=== PATIENT | female | born 1940 | race Caucasian/White ===

== ENCOUNTER 2016-05-22 09:13 | Day surgery (SDC) | payer MEDICARE, MEDICAID ==
[2016-06-07] MEDS ORDERED: NORCO 5-325 TA1 EACH PO (09:21)
[2016-06-07] MEDS ORDERED: NORVASC5 MG PO (09:21)
== END 2016-05-22 12:03 | disposition home or self-care (01) ==
DX: K22.70 Barrett's esophagus without dysplasia (principal); K29.50 Unspecified chronic gastritis without bleeding; K20.9 Esophagitis, unspecified; K44.9 Diaphragmatic hernia without obstruction or gangrene; G47.30 Sleep apnea, unspecified; I10 Essential (primary) hypertension; Z79.899 Other long term (current) drug therapy; J40 Bronchitis, not specified as acute or chronic; Z98.890 Other specified postprocedural states; Z88.6 Allergy status to analgesic agent; Z88.8 Allergy status to other drugs, medicaments and biological substances; E78.00 Pure hypercholesterolemia, unspecified

== ENCOUNTER 2016-06-05 08:18 | Observation (INO) | payer MEDICARE, MEDICAID ==
[~2016-06-05] VITALS: Ht 165.1 cm; Wt 75.2 kg
[2016-06-07] MEDS ORDERED: NORCO 5-325 TA1 EACH PO (09:21)
[2016-06-07] MEDS ORDERED: NORVASC5 MG PO (09:21)
--- NOTE | 2016-06-18 07:13 | OR ---
ADMIT: 06/05/2016 RM/LOC: 510 [facility] MR#: [id number] [facility] [address] [place] [id number] [address] [place] [address] Operative/Delivery Room Report SEX: F AGE: 75 : 1940 SURGERY DATE: 06/05/2016 SURGEON: Nicholas Velarde MD PREOPERATIVE DIAGNOSIS: Refractory gastroesophageal reflux disease with large hiatal hernia. POSTOPERATIVE DIAGNOSIS: Refractory gastroesophageal reflux disease with large hiatal hernia. PROCEDURE: Laparoscopic hiatal hernia repair with Toupet fundoplication. DRUPAL ARCHITECT: MICHELLE Venegas whose assistance was necessary for laparoscopic visualization and tissue retraction. ANESTHESIA: General. ESTIMATED BLOOD LOSS: Minimal. DESCRIPTION: The patient was taken to the operating room and placed supine on the operating room table. General anesthesia was established. The abdomen was prepped and draped in the standard surgical fashion. A 1 cm supraumbilical incision was made in the skin. The fascia was grasped with Brandt clamp and a Veress needle was advanced into the peritoneal cavity. Carbon dioxide was used to insufflate the abdomen to 15 mmHg pressure. The Veress needle was withdrawn, and a 10 mm blunt-tipped trocar was placed. Laparoscope was advanced and showed intraperitoneal position with no damage to underlying structures. Next, 5 mm right upper quadrant, left upper quadrant, left lateral ports were placed under visualization. The Khurram liver retractor was advanced from a 5 mm subxiphoid incision and used to retract the left lobe of the liver. The hernia sac was reduced from the mediastinal attachments. The right crura was freed from this hernia sac with Harmonic Scalpel. The dissection proceeded posteriorly to the junction with the left crura. The space in the retroesophageal area was created bluntly and visualization of the posterior gastric fundus was easily performed. This was quite floppy and allowed approximation to the distal esophagus for a 270 degree wrap without tension. The dissection anteriorly proceeded to the left crura. The angle of his was freed from its phrenic attachments with the phrenoesophageal ligament division. Anterior and posterior vagus nerves were identified and preserved. Next, the crural repair was performed in a [id number] fashion with the EndoStitch device and 0 Surgidac suture. This provided adequate closure of the crura with no tension. Four separate sutures were used for approximation. Next, a partial 270 degree ADMIT: 06/05/2016 RM/LOC: 510 [facility] MR#: [id number] [id number] [address] [address] Operative/Delivery Room Report SEX: F AGE: 75 : 1940 fundoplication was performed. A posterior limb was secured to the GE junction with 2 separate EndoStitch 0 Surgidac sutures. In a similar fashion, an anterior limb was secured for 270 degree nonobstructive wrap with the EndoStitch and 0 Surgidac suture. This again was done with no tension or torsion. The wrap and repair were intact upon completion. The ports and Khurram liver retractor were withdrawn. The fascial margin at the 11 mm port site was approximated with 0 Vicryl suture and the suture passer. The abdomen was allowed to deflate. Skin edges were approximated with 4-0 Monocryl in a subcuticular fashion and Dermabond. Local anesthetic was injected at the incisions. Sponge, needle, and instrument counts were correct at the end of the case. The patient tolerated the procedure well and transferred to the recovery area in stable condition. Nicholas Velarde MD/ bruno JOB #: [id number] CC: Nicholas Velarde MD, Attending Physician Chandu De Dios MD, Family Physician
== END 2016-06-06 12:52 | disposition home or self-care (01) ==
LOC: SSS 08:18 → 5MS 08:19 → SSS 08:40 → 5MS 06-06 12:52
PROVIDERS: ADMIT Surgery
PROC: 0BQR4ZZ (ICD-10-PCS; principal; 2016-06-05)
DX: K44.9 Diaphragmatic hernia without obstruction or gangrene (principal); K21.9 Gastro-esophageal reflux disease without esophagitis; G47.30 Sleep apnea, unspecified; I10 Essential (primary) hypertension; F41.9 Anxiety disorder, unspecified; F03.90 Unspecified dementia, unspecified severity, without behavioral disturbance, psychotic disturbance, mood disturbance, and anxiety; Z96.651 Presence of right artificial knee joint; Z79.899 Other long term (current) drug therapy; Z88.6 Allergy status to analgesic agent; Z88.8 Allergy status to other drugs, medicaments and biological substances; E78.00 Pure hypercholesterolemia, unspecified; J40 Bronchitis, not specified as acute or chronic